=== PATIENT | female | born 1950 | race Caucasian/White ===

== ENCOUNTER 2020-12-03 13:45 | Outpatient (CLI) | payer MEDICARE, SELFPAY ==
[2020-12-03 14:02] VITALS: BP 133/78; PULSE 86; RESP 18; TEMP 37.7; O2SAT 94; BMI 35.9
[2020-12-03] MEDS: 0.9% Saline Lock 10 ML Syringe IV (14:07)
[2020-12-03 14:45] VITALS: BP 116/70; PULSE 85; RESP 16; TEMP 38.4; O2SAT 97
[2020-12-03] MEDS: Acetaminophen 325 MG Tablet 650 MG PO (15:02)
[2020-12-03 16:08] VITALS: BP 119/75; PULSE 83; RESP 16; TEMP 38.2; O2SAT 98
== END 2020-12-03 16:09 | disposition home or self-care (01) ==
LOC: MS3OUT 13:46 → MS3 13:46
PROVIDERS: Referring Provider Nurse Practitioner Adult Health; Visit Provider Nurse Practitioner Adult Health
DX: Z23 Encounter for immunization (principal); U07.1 COVID-19
CPT/HCPCS: J7050; M0243; A4216; Q0240

== ENCOUNTER 2022-03-15 16:42 | Emergency (ER) | payer MEDICARE, SELFPAY ==
[2022-03-15 16:44] VITALS: BP 145/87; PULSE 75; RESP 18; TEMP 36.1; O2SAT 96; BMI 35.7
--- NOTE | 2022-03-15 17:55 | CT_ITS ---
INDICATION: LLQ pain EXAMINATION: CT Abdomen And Pelvis W/ Contrast Injection TECHNIQUE: Helically acquired images were obtained of the abdomen and pelvis after IV contrast. A radiation dose optimization technique was used for this scan. IV Contrast dosage and agent: IV 100mL Isovue-300 Oral contrast: None. COMPARISON: None. FINDINGS: Visualized lung bases: Left diaphragmatic hernia containing the stomach and pancreas.. Liver: Unremarkable Gallbladder: Unremarkable Spleen: Unremarkable Pancreas: Unremarkable Adrenal Glands: Unremarkable Kidneys: Unremarkable Vasculature: Mild scattered aortoiliac atherosclerotic calcifications. GI Tract: Scattered diverticula throughout the colon. There is mild circumferential short segment wall thickening of the sigmoid colon with surrounding mesenteric fat stranding. No focal fluid collection or free air. Lymphadenopathy: None Peritoneum: No ascites. Bladder: Unremarkable Reproductive organs: Unremarkable Bones/Soft tissues: There are diffuse degenerative changes of the spine. CT/Abdomen/Pelvis W IV Cont ONLY IMPRESSION: Acute sigmoid diverticulitis. No focal fluid collection or free air. Left diaphragmatic hernia containing the stomach and pancreas.. Electronically Signed: Bartolo Perez MD at 19:14 EST ,
--- NOTE | 2022-03-15 17:56 | EDS_ITS ---
HPI HPI - GI History of Present Illness Chief Complaint: Abd Pain Narrative Narrative: 71-year-old female past medical history of hypothyroidism, hypertension, hypercholesterolemia, remote diverticulitis presents with suprapubic to left lower quadrant abdominal pain that she has had for the last 3 to 4 weeks. She is taking a probiotic. Still has bowel movements and is going more frequently. She denies any fevers or chills. No nausea or vomiting. No diarrhea. She states at times she feels like she has to have a bowel movement and she has similar pain in the suprapubic area to the left lower quadrant. She thinks she may have diverticulitis again. She denies any dysuria or hematuria. No true exacerbating or alleviating symptoms. She is able to sleep at night she states. [facility] Medical History (Updated 03/15/22 @ 19:49 by Gus Menjivar MD) Breast cancer Hypertension Home Medications atorvastatin 40 mg tablet 40 mg PO DAILY 12/03/20 [History Last Taken Unknown] citalopram 10 mg tablet 10 mg PO DAILY 12/03/20 [History Last Taken Unknown] levothyroxine 100 mcg tablet 100 mcg PO DAILY 12/03/20 [History Last Taken Unknown] lisinopril 10 mg tablet 10 mg PO DAILY 12/03/20 [History Last Taken Unknown] omeprazole 40 mg capsule,delayed release 40 mg PO DAILY 12/03/20 [History Last Taken Unknown] vitamin E 400 unit tablet 400 unit PO DAILY 12/03/20 [History Last Taken Unknown] ciprofloxacin HCl 500 mg tablet (Cipro) 500 mg PO BID #20 tabs 03/15/22 [Rx Last Taken Unknown] metronidazole 500 mg tablet 500 mg PO TID #30 tabs 03/15/22 [Rx Last Taken Unknown] Allergy/AdvReac Type Severity Reaction Status Date / Time latex Allergy Other Verified 03/15/22 16:43 Social History Smoking Status: Never smoker ROS ROS ED ROS Narrative Constitutional: No fever, no chills. HEENT: No sore throat. No neck pain. No loss of vision. No rhinorrhea. Cardiovascular: No chest pain. No palpitations. No pedal edema. Respiratory: No cough, no shortness of breath. Abdominal: Suprapubic to left lower quadrant abdominal pain. No nausea. No vomiting. Genitourinary: No dysuria. No hematuria. Musculoskeletal: No myalgias. No arthralgias. Neurologic: No headaches. No dizziness. No lightheadedness. Skin: No rash. No change in color. Psychiatric: No depression. No anxiety. EXAM Physical Exam Narrative Exam Narrative: Afebrile. Vital signs noted. HEENT: Normocephalic. Atraumatic. PERRL, EOMI. Neck soft and supple. No point tenderness or step off. Cardiovascular: Regular rate and rhythm. No murmurs, rubs, or gallops appreciated. Respiratory: No tachypnea. Lungs clear to auscultation bilaterally. Gastrointestinal: Abdomen soft, mild tenderness to palpation in suprapubic to left lower quadrant with normoactive bowel sounds. No rebound or guarding. Neurological: Awake. Alert. Nonfocal, nonlateralizing. Skin: No rash. Normal color. No pallor. Musculoskeletal: No pedal edema. Full range of motion extremities. Const Vital Signs: 03/15/22 16:44 Temperature 97 F L Temperature Source Temporal Pulse Rate 75 Respiratory Rate 18 Blood Pressure 145/87 H Blood Pressure Mean 106 Pulse Ox 96 Oxygen Delivery Method Room Air MDM MDM MDM Narrative Medical decision making narrative: In the differential diagnosis is sigmoid diverticulitis versus colitis versus obstruction versus urinary tract infection or ureterolithiasis. Comprehensive work-up was pursued. CBC, CMP, and urinalysis will be obtained. Currently, she declines any analgesics parenterally. She will be bolused normal saline and CT imaging will be obtained as well. I reviewed the patient's laboratory work. She has normal white count of 6.1, hemoglobin normal at 12.4, platelet count normal at 169. CMP shows chloride 110 but sodium normal at 143 with a normal potassium of 4.2. BUN and creatinine are normal at 17 and 0.99. Urinalysis shows 100 leukocytes, but negative nitrites. While she has 5-10 WBCs, she is not having dysuria or hematuria. Of most significance is review of the radiology report which shows sigmoid diverticulitis. She will be on antibiotics regardless although I do not feel that she has a urinary tract infection. I do feel that this is an uncomplicated diverticulitis. I do feel that she can be treated as an outpatient. She states she has an appointment with Dr. Magaña on on the first, approximately 8 days from now. She was told that she should probably follow-up in a few days. Return precautions were reviewed with the patient. She was given her first doses of Cipro and Flagyl here in the emergency department but declined a prescription for narcotic pain medication, stating she would rather take [id number] medication. I feel she be discharged safely home with follow-up. Return instructions were reviewed. She was also given the number to gastroenterology with whom she could follow-up. Disposition is discharged home in stable condition. Lab Data Attestation: I reviewed the patient's lab results. Labs: Laboratory Results - last 24 hr 03/15/22 03/15/22 03/15/22 18:02 18:02 18:10 WBC 6.1 RBC 4.06 L Hgb 12.4 Hct 37.9 MCV 93.3 MCH 30.5 MCHC 32.7 RDW Std Deviation 45.4 H RDW Coeff of Herminio 13.2 Plt Count 169 MPV 13.0 H Immature Gran % (Auto) 0.200 Neut % (Auto) 62.6 Lymph % (Auto) 21.9 [place]nam % (Auto) 12.5 H Eos % (Auto) 2.1 Baso % (Auto) 0.7 Absolute Neuts (auto) 3.8 Absolute Lymphs (auto) 1.33 Nucleated RBC % 0 Sodium 143 Potassium 4.2 Chloride 110 H Carbon Dioxide 27.0 Anion Gap 6 BUN 17 Creatinine 0.99 Estim Creat Clear Calc 48.26 Est GFR (MDRD) Af Amer 72 Est GFR (MDRD) Non-Af 59 L BUN/Creatinine Ratio 17.2 Glucose 100 Calcium 8.8 Total Bilirubin 0.30 AST 23 ALT 23 Alkaline Phosphatase 93 Total Protein 6.7 Albumin 3.3 Globulin 3.4 Albumin/Globulin Ratio 1.0 Urine Color Yellow Urine Clarity Clear Urine pH 6.0 Ur Specific [place] 1.015 Urine Protein 15 H Urine Glucose (UA) Normal Urine Ketones Negative Urine Occult Blood 10 H Urine Nitrite Negative Urine Bilirubin Negative Urine Urobilinogen Normal Ur Leukocyte Esterase 100 H Urine RBC 0 SEEN Urine WBC 5-10 SEEN Ur Squamous Epith Cells 0 SEEN Urine Bacteria RARE Urine Mucus 0 SEEN Radiography Diagnostic Testing: Clinical Impression(s) from Imaging Studies Abdomen/Pelvis CT 03/15/22 17:55 IMPRESSION: Acute sigmoid diverticulitis. No focal fluid collection or free air. Left diaphragmatic hernia containing the stomach and pancreas.. Electronically Signed: Bartolo Perez MD at 19:14 EST , Discharge Plan Triage Chief Complaint: Abd Pain Other Complaint: Diarrhea ED Provider: Gus Menjivar Dx/Rx/DC Orders Clinical Impression: Sigmoid diverticulitis, Abdominal pain Instructions: ED Diverticulitis Prescriptions: New ciprofloxacin HCl [Cipro] 500 mg tablet 500 mg PO BID Qty: 20 0RF metronidazole 500 mg tablet 500 mg PO TID Qty: 30 0RF No Action atorvastatin 40 mg Tablet 40 mg PO DAILY citalopram 10 mg Tablet 10 mg PO DAILY omeprazole 40 mg Capsule,Delayed Release(Dr/Ec) 40 mg PO DAILY levothyroxine 100 mcg Tablet 100 mcg PO DAILY lisinopril 10 mg Tablet 10 mg PO DAILY vitamin E 400 unit Tablet 400 unit PO DAILY Primary Care Provider: Gina Lynch Referrals: Vignesh Medina MD [Non-Staff] - Gina Lynch DO [Med Staff - Time Signal Wirer] - 3-5 Days Randy Wolf DO [Med Staff - Active Staff] - As Needed Activity Restrictions/Additional Instructions: You have been diagnosed with diverticulitis. Take all of your medication. Follow-up with your primary care physician in the next 3 to 5 days. Return with fever, increased pain, new or worsening symptoms. Disposition Disposition: Home, Self Care
[2022-03-15 18:23] LABS: Absolute Lymphocyte Count 1.33 X10^3/uL (0.83-4.51); Absolute Neutrophil Count 3.8 X10^3/uL (2.0-7.7); Basophil# 0.04 X10^3/uL; Basophil% 0.7 % (0-1); Eosinophil# 0.13 X10^3/uL; Eosinophils% 2.1 % (0-5); Hematocrit 37.9 % (37-47); Hemoglobin 12.4 g/dL (12.0-15.0); Lymphocyte # 1.33 X10^3/ul (0.83-4.51); Lymphocyte % 21.9 % (19-41); Mean Corp Hgb Conc 32.7 g/dL (32-36); Mean Corpuscular Hgb 30.5 pg (27.0-32.0); Mean Corpuscular Volume 93.3 fL (81-99); Monocyte# 0.76 X10^3/uL; Monocyte% 12.5 % (0-10); NRBC Flagged by Analyzer 0 % (0-5); Neutrophil % 62.6 % (47-70); Platelet Count 169 K/mm3 (150-450); RBC Distribution Width CV 13.2 % (11.6-14.6); RBC Distribution Width SD 45.4 fl (35.1-43.9); Red Blood Count 4.06 M/mm3 (4.2-5.4); White Blood Count 6.1 K/mm3 (4.4-11.0)
[2022-03-15 18:28] LABS: Mucous, Urine 0 SEEN /hpf (<or=2+); Red Blood Cells-Urine 0 SEEN /hpf (0-5); Squamous Epithelial Cells - UA 0 SEEN /hpf (5-10)
[2022-03-15 18:32] LABS: AST(SGOT) 23 U/L (15-37); Alanine Aminotransfer ALT/SGPT 23 U/L (13-56); Albumin, Serum 3.3 g/dL (3.2-5.0); Alkaline Phosphatase 93 U/L (45-117); Anion Gap 6 (5-15); BUN 17 mg/dL (7-18); BUN/Creat Ratio 17.2 RATIO (10-20); Calcium,Total 8.8 mg/dL (8.5-10.1); Chloride 110 mmol/L (98-107); Creatinine, Serum 0.99 mg/dL (0.55-1.02); EST Glomerular Filtration Rate 59 mL/min (>60); Est Glom Filt Rate - Afr Amer 72 mL/min (>60); Estimated Creatinine Clearance 48.26 ml/min; Globulin 3.4 g/dL (2.2-4.2); Glucose 100 mg/dL (74-106); Potassium 4.2 mmol/L (3.5-5.1); Protein, Total 6.7 g/dL (6.4-8.2); Sodium Level 143 mmol/L (136-145)
[2022-03-15 18:37] LABS: Color, Urine Yellow (Yellow); Glucose, Dipstick Normal (Normal); Ketone-Dipstick Negative (Negative); Leukocyte Esterase-Dipstick 100 /ul (Negative); Nitrite-Dipstick Negative (Negative); Occult Blood-Urine 10 /ul (Negative); Protein-Dipstick 15 mg/dl (Negative); Specific Gravity, Urine 1.015 (1.002-1.030); Urine Bilirubin Dipstick Negative (Negative); Urine Clarity Clear (Clear); Urine Urobilinogen Normal (Normal)
[2022-03-15 18:43] VITALS: PULSE 74
[2022-03-15 18:45] LABS: Bacteria RARE /hpf (None Seen); White Blood Cells 5-10 SEEN /hpf (0-5)
[2022-03-15 19:44] VITALS: PULSE 77; RESP 15; O2SAT 99
[2022-03-15] MEDS: Ciprofloxacin 500 MG Tablet PO (19:55)
[2022-03-15] MEDS: metroNIDAZOLE 500 MG Tablet PO (19:55)
== END 2022-03-15 19:58 | disposition home or self-care (01) ==
PROVIDERS: Emergency Provider Emergency Medicine; PCP Internal Medicine; Visit Provider Emergency Medicine
DX: K57.32 Diverticulitis of large intestine without perforation or abscess without bleeding (principal); I10 Essential (primary) hypertension; E78.00 Pure hypercholesterolemia, unspecified; R10.9 Unspecified abdominal pain; E03.9 Hypothyroidism, unspecified; Z85.3 Personal history of malignant neoplasm of breast
CPT/HCPCS: 74177; 80053; 81001; 85025; 99284; Q9967; A4216

== ENCOUNTER → 2022-04-02 | Outpatient (CLI) | payer MEDICARE, SELFPAY ==
[2022-04-02 12:52] LABS: Absolute Lymphocyte Count 1.01 X10^3/uL (0.83-4.51); Absolute Neutrophil Count 2.9 X10^3/uL (2.0-7.7); Basophil# 0.03 X10^3/uL; Basophil% 0.6 % (0-1); Eosinophil# 0.13 X10^3/uL; Eosinophils% 2.8 % (0-5); Hematocrit 38.8 % (37-47); Hemoglobin 12.8 g/dL (12.0-15.0); Lymphocyte # 1.01 X10^3/ul (0.83-4.51); Lymphocyte % 21.7 % (19-41); Mean Corpuscular Hgb 30.7 pg (27.0-32.0); Mean Platelet Vol. 13.1 fl (6.2-12.0); Monocyte# 0.57 X10^3/uL; Monocyte% 12.3 % (0-10); NRBC Flagged by Analyzer 0 % (0-5); Neutrophil % 62.4 % (47-70); Platelet Count 158 K/mm3 (150-450); RBC Distribution Width CV 14.4 % (11.6-14.6); RBC Distribution Width SD 48.8 fl (35.1-43.9); Red Blood Count 4.17 M/mm3 (4.2-5.4); White Blood Count 4.7 K/mm3 (4.4-11.0)
[2022-04-02 12:54] LABS: Erythrocyte Sedimentation Rate 21 mm/hr (0-30)
[2022-04-02 13:39] LABS: CRP < 2.90 mg/L (0.0-3.0)
== END | disposition home or self-care (01) ==
LOC: LABSPEC 12:35
PROVIDERS: PCP Internal Medicine; Visit Provider Internal Medicine
DX: R10.9 Unspecified abdominal pain (principal)
CPT/HCPCS: 85025; 85652; 86140

== ENCOUNTER → 2022-08-09 | Outpatient (CLI) | payer MEDICARE, SELFPAY ==
--- NOTE | 2022-08-09 12:50 | ECHOD_ITS ---
Reason For Study: ARRYTHMIA Procedure This was a 2D Doppler, Color Flow transthoracic echocardiogram. Technically difficult study. Exam performed in department. Left Ventricle Normal size and thickness. The left ventricular ejection fraction is 65 %. Normal diastology for age. Right Ventricle Normal right ventricle. Atria The left and right atria are normal. Mitral Valve Mild mitral annular calcification. Trivial mitral valve insufficiency. Tricuspid Valve Trivial tricuspid valve insufficiency. Unable to estimate RV systolic pressure due to insufficient tricuspid regurgitant envelope. Aortic Valve Focal thickening of the left aortic valve cusp. The aortic valve is not well visualized in the short axis view. Pulmonic Valve The pulmonic valve is not well visualized. Great Vessels Normal sized aortic root. Pericardium/Pleural No pericardial effusion. MMode/2D Measurements & Calculations LVIDd: 4.1 cm IVSd: 1.1 cm Ao root diam: 3.4 cm LVIDs: 2.4 cm LVPWd: 1.2 cm FS: 41.8 % LAV(MOD-sp4): 57.1 ml LA A4 area: 21.1 cm2 LA dimension(2D): 3.0 cm RA A4 area: 13.2 cm2 Time Measurements MV dec time: 0.24 sec Doppler Measurements & Calculations MV E max santos: 69.9 cm/sec Lat Peak E' Santos: 8.6 cm/sec Med Peak E' Santos: 7.3 cm/sec MV A max santos: 73.1 cm/sec E/E' lat: 8.1 E/E' med: 9.5 MV E/A: 0.96 MV V2 max: 89.5 cm/sec MV dec slope: 288.0 cm/sec2 Ao V2 max: 160.4 cm/sec MV max P.2 mmHg Ao max P.3 mmHg MV V2 mean: 55.6 cm/sec Ao V2 mean: 107.7 cm/sec MV mean P.4 mmHg Ao mean P.3 mmHg MV V2 VTI: 35.0 cm Ao V2 VTI: 37.0 cm AV (velocity ratio): 0.84 LV V1 max: 114.0 cm/sec PA V2 max: 86.2 cm/sec LV V1 max P.2 mmHg PA V2 mean: 61.3 cm/sec LV V1 mean P.8 mmHg LV V1 mean: 78.4 cm/sec LV V1 VTI: 31.2 cm ECHO/Echo Complete Interpretation Summary Technically difficult study. The left ventricular ejection fraction is 65 %. Mild mitral annular calcification. Focal thickening of the left aortic valve cusp. Ordering Physician: Gina Lynch Referring Physician: Gina Lynch Performed By: Mary Harper RCS
== END | disposition home or self-care (01) ==
PROVIDERS: PCP Internal Medicine; Referring Provider Internal Medicine; Visit Provider Internal Medicine
DX: I49.8 Other specified cardiac arrhythmias (principal); R94.31 Abnormal electrocardiogram [ECG] [EKG]
CPT/HCPCS: 93306

== ENCOUNTER → 2023-02-22 | Outpatient (CLI) | payer MEDICARE, SELFPAY ==
--- NOTE | 2023-02-22 13:11 | BD_ITS ---
STUDY: DUAL ENERGY X-RAY ABSORPTIOMETRY / DXA REASON FOR EXAM: Female, 72 years old. [id number] TECHNIQUE: Bone Mineral Density (BMD) measurements of lumbar spine and bilateral hips were obtained. COMPARISON: None. FINDINGS: Lumbar Spine (L1-L4): g/cm2 (0.918) / T-score (-1.1) / Z-score (1.0) Findings are suggestive of osteopenia with a low fracture risk. Left Femur Total: g/cm2 (0.997) / T-score (0.5) / Z-score (2.0) Left Femoral Neck: g/cm2 (0.714) / T-score (-1.2) / Z-score (0.6) Right Femur Total: g/cm2 (1.076) / T-score (1.1) / Z-score (2.6) Right Femoral Neck: g/cm2 (0.848) / T-score (0.0) / Z-score (1.8) BD/Dexa Bone Density Study IMPRESSION: The patient is considered osteopenic as outlined below according to World Royal Organization (WHO) criteria with a low fracture risk. Reference Information: The T-score is the number of standard deviations above or below the standard which is normal for young adults at their peak bone mineral density. The World Health Organization (WHO) interprets the T-scores as follows: Above -1 Normal bone density Between -1 and -2.5 Osteopenia Equal to / or below -2.5 Osteoporosis As a practical clinical guideline, osteopenia may be graded as follows: Mild -1 through -1.5 Moderate -1.6 through -2.0 Severe -2.1 through -2.4 The Z-score is the number of standard deviations above or below age-matched controls. A Z-score of less than -1.5 would be considered abnormal. References: 1. NIH Osteoporosis and Related Bone Diseases www osteo.org 2. International Society for Clinical Densitometry www iscd.org 3. National Osteoporosis Foundation www nof.org Electronically Signed: Jc Vasquez MD at 14:37 EST ,
== END | disposition home or self-care (01) ==
PROVIDERS: PCP Internal Medicine; Referring Provider Internal Medicine; Visit Provider Internal Medicine
DX: Z78.0 Asymptomatic menopausal state (principal)
CPT/HCPCS: 77080

== ENCOUNTER 2024-11-29 23:22 | Emergency (ER) | payer MEDICARE, SELFPAY ==
[2024-11-29 23:23] VITALS: BP 138/80; PULSE 62; RESP 18; TEMP 37; O2SAT 99
--- NOTE | 2024-11-29 23:40 | RAD_ITS ---
PROCEDURE: KNEE 4 OR MORE VIEWS 11/29/2024 REASON FOR EXAM: PAIN TECHNIQUE: Procedure Code: RADKN Modality: DX Procedure: KNEE 4 OR MORE VIEWS Laterality: Right. FINDINGS: No acute fracture or dislocation. Moderate joint space narrowing with marginal osteophytosis. Small suprapatellar joint effusion. RAD/Knee 4 or More Views IMPRESSION: As above. Reading Location: [id number]
[2024-11-30 01:32] VITALS: BP 136/63; PULSE 74
--- NOTE | 2024-11-30 01:48 | EDS_ITS ---
HPI History of Present Illness Chief Complaint: Lower Extremity Injury Informant: patient Narrative Narrative: Patient is a 74-year-old female with past medical history of hypertension. She states that she has had increased pain and swelling to the right knee with no trauma. She denies any history of DVT/PE. She denies any recent surgery or travel. She states that she recently had sudden onset redness and swelling and pain in her right great toe and she was unsure if this could be gout or not. She states she is taking [id number] medications with minimal symptom improvement and secondary to the persistent pain presents for evaluation [facility] Medical History (Updated 12/02/24 @ 01:[address] Reinaldo Contreras, DO) Hypertension Breast cancer Home Medications ?Medication ?Instructions ?Recorded ?Last Taken ?Type atorvastatin 40 mg tablet 40 mg PO DAILY 12/03/20 Unkn own History citalopram 10 mg tablet 10 mg PO DAILY 12/03/20 Unkn own History levothyroxine 100 mcg tablet 100 mcg PO DAILY 12/03/20 Unknown History lisinopril 10 mg tablet 10 mg PO DAILY 12/03/20 Unkn own History omeprazole 40 mg capsule,delayed 40 mg PO DAILY Unknown History release vitamin E 400 unit tablet 400 unit PO DAILY 12/03/20 U nknown History ciprofloxacin HCl 500 mg tablet 500 mg PO BID #20 tabs 03/15/22 Unknown Rx (Cipro) metronidazole 500 mg tablet 500 mg PO TID #30 tabs Unknown Rx oxycodone-acetaminophen 5 mg-325 1 tab PO Q6H PRN pain 3 days #12 11/30/24 Unknown Rx mg tablet (Endocet) tabs Allergy/AdvReac Type Severity Reaction Status Date / Time latex Allergy Other Verified 11/29/24 23:24 Family History no significant family his Social History Smoking Status: Never smoker ROS ROS ED Constitutional Constitutional ED: Denies chills or fever(s) ENT ENT ED: Denies sore throat Cardiovascular Cardiovascular: Denies chest pain, palpitations or racing heartbeat Respiratory/Chest Respiratory/Chest: Denies cough or dyspnea Gastrointestinal Gastrointestinal: Denies abdominal pain, diarrhea, nausea or vomiting Musculoskeletal Musculoskeletal: Reports other Details: Positive right knee pain Integumentary Denies Abrasions or rash Neurologic Neurologic: Denies headache(s), paresthesias or weakness Hematologic/Lymphatic Hematologic/Lymphatic: Denies easy bleeding or easy bruising EXAM Physical Exam Const Vital Signs: 11/29/24 23:23 11/30/24 01:32 Temperature 98.6 F Temperature Source Oral Pulse Rate 62 74 Respiratory Rate 18 Blood Pressure 138/80 H 136/63 H Blood Pressure Mean 99 87 Pulse Ox 99 Oxygen Delivery Method Room Air Positive well nourished and well developed General Appearance ED: well developed; Negative for pallor HEENT HEENT Narrative: Normocephalic atraumatic Eyes PERRL and EOMs intact bilaterally General Eye ED: Negative for scleral icterus Neck supple Resp normal respiratory effort and clear to auscultation bilaterally Cardio regular rate and regular rhythm Extremity Extremity Narrative: Right lower extremity is neurovascularly intact. Patient has mild soft tissue swelling to the anterior aspect of the right knee that is asymmetric when compared to left. However there is no overlying erythema or warmth. No obvious findings to suggest cellulitis or abscess. There is no asymmetric swelling of the right calf compared to left. Negative Homans' sign bilaterally. All compartments are soft and compressible going against compartment syndrome. Patellar tendon is intact and the ligaments are stable. Active range of motion of the right knee is decreased secondary to pain Neuro oriented x3, CN's II-XII intact bilaterally and no sensory deficits noted Sensorium / Orientation: alert Psych mental status grossly normal Skin no rashes or lesions noted and no wounds Skin Narrative: Soft tissue swelling to the anterior aspect of the right knee as documented above without overlying erythema or warmth or ecchymosis General Skin Exam: Negative for jaundice or pallor MDM MDM MDM Narrative Medical decision making narrative: Patient arrived to the ER with mild hypertension but has a past medical history of this. She reported right knee pain without trauma or excessive activity. She denied any recent travel or surgery and her physical exam does not suggest DVT as there is no asymmetric calf swelling or pain but pain and swelling is along the anterior aspect of the knee. The patient has had no recent injections or knee surgeries. She denies any sick symptoms or fevers. By physical exam she does not have a septic joint as there is no erythema or warmth and she is able to still bear weight and ambulate. There is no overlying cellulitis or abscess by physical exam either. There is a potential for gout as patient reported changes to the right great toe recently that correlate more with gout but without erythema or warmth I have low concern for this. X-ray confirmed that there was no free air going against a soft tissue gangrenous infection and there is no sign of moth-eaten appearance to suggest osteomyelitis or occult fracture. I cannot perform a venous duplex at this time of night and in order to ensure that her nontraumatic pain is not from a DVT an outpatient venous duplex will be provided. At this time the patient will be placed in the immobilizer for stabilization given pain control. 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 Reading Location: [facility] X-ray of the right knee reveals soft tissue swelling/small joint effusion above the patella with degenerative findings but no acute fracture dislocation or retained foreign body Discharge Plan Triage Chief Complaint: Lower Extremity Injury ED Provider: Reinaldo Contreras Dx/Rx/DC Orders Clinical Impression: Right knee sprain, Hypertension Instructions: ED Meniscal Injury Knee Poss, ED Knee Sprain Prescriptions: New oxycodone-acetaminophen [Endocet] 5-325 mg tablet 1 tab PO Q6H PRN (Reason: pain) 3 Days Qty: 12 0RF No Action atorvastatin 40 mg Tablet 40 mg PO DAILY citalopram 10 mg Tablet 10 mg PO DAILY omeprazole 40 mg Capsule,Delayed Release(Dr/Ec) 40 mg PO DAILY levothyroxine 100 mcg Tablet 100 mcg PO DAILY lisinopril 10 mg Tablet 10 mg PO DAILY vitamin E 400 unit Tablet 400 unit PO DAILY ciprofloxacin HCl [Cipro] 500 mg tablet 500 mg PO BID Qty: 20 0RF metronidazole 500 mg tablet 500 mg PO TID Qty: 30 0RF Primary Care Provider: Gina Lynch Referrals: Gina Lynch DO [Primary Care Provider, Internal Medicine] Activity Restrictions/Additional Instructions: Your x-ray showed arthritis and a small effusion but no sign of fracture or disl ocation. By physical exam he had potential injury to your meniscus or your lateral collateral ligament and this will need an MRI for further evaluation. Please follow-up with your family doctor and discuss obtaining this study as an outpatient. In order to ensure there is no sign of atypical presentation for a DVT obtain your outpatient venous duplex. If you develop redness warmth or fever this could indicate potential infection and therefore please return to the ER for repeat evaluation. Print Language: Mohawk Disposition Disposition: Home, Self Care Discharge Date/Time: 11/30/24 02:28
[2024-11-30 02:26] VITALS: BP 136/63; PULSE 74; RESP 18; TEMP 36.6; O2SAT 100
== END 2024-11-30 02:28 | disposition home or self-care (01) ==
PROVIDERS: Emergency Provider Emergency Medicine; PCP Internal Medicine; Visit Provider Emergency Medicine
DX: S83.91XA Sprain of unspecified site of right knee, initial encounter (principal); I10 Essential (primary) hypertension; Z85.3 Personal history of malignant neoplasm of breast; X58.XXXA Exposure to other specified factors, initial encounter
CPT/HCPCS: 73564; 99283

== ENCOUNTER → 2024-11-30 | Outpatient (CLI) | payer MEDICARE, SELFPAY ==
--- NOTE | 2024-11-30 14:07 | VDLE_ITS ---
Reason For Study Reason For Study: Pain RIGHT LEFT GSV is normal. CFV is compressible, spontaneous, phasic, competent, CFV is compressible, spontaneous, phasic, competent and demonstrates normal augmentation. and demonstrates normal augmentation. FV is compressible, spontaneous, phasic, competent and demonstrates normal augmentation. POP V is compressible, spontaneous, phasic, competent and demonstrates normal augmentation. T/P Trunk is compressible. PTV is compressible. RT PerV is compressible. Nonvascularized structure noted in the popliteal fossa measuring 3.15x0.75x4.85 cm. Procedure This is a venous duplex using B-mode, color flow and spectral Doppler. Exam performed in department. A preliminary report was called and/or faxed to Gina Lynch DO. VL/Venous Duplex US, Unilateral Interpretation Summary Deep veins of the right lower extremity are patent and compressible segmentally . There is no evidence of right lower extremity deep vein thrombosis. The right great saphenous vein appears patent a nd compressible segmentally. Nonvascularized structure noted in the popliteal fossa measuring 3.15x0.75x4.85 cm. Ordering Physician: Reinaldo Contreras Referring Physician: Gina Lynch M.D. Performed By: Lien Caban RVT
== END | disposition home or self-care (01) ==
PROVIDERS: PCP Internal Medicine; Referring Provider Emergency Medicine; Visit Provider Emergency Medicine
DX: R60.9 Edema, unspecified (principal); M79.604 Pain in right leg
CPT/HCPCS: 93971

== ENCOUNTER → 2025-01-16 | Outpatient (CLI) | payer MEDICARE, SELFPAY ==
[2025-01-16 17:53] LABS: Hematocrit 39.0 % (37-47); Hemoglobin 12.7 g/dL (12.0-15.0); Immature Granulocytes Count 0.010 X10^3/uL (0.0-0.0); Mean Corp Hgb Conc 32.6 g/dL (32-36); Mean Corpuscular Volume 91.5 fL (81-99); Mean Platelet Vol. 13.1 fl (6.2-12.0); NRBC Flagged by Analyzer 0 % (0-5); Platelet Count 159 K/mm3 (150-450); RBC Distribution Width CV 13.8 % (11.6-14.6); RBC Distribution Width SD 46.8 fl (35.1-43.9); Red Blood Count 4.26 M/mm3 (4.2-5.4); White Blood Count 6.5 K/mm3 (4.4-11.0)
[2025-01-16 18:15] LABS: AST(SGOT) 21 U/L (<=31); Alanine Aminotransfer ALT/SGPT 13 U/L (<=34); Albumin, Serum 4.0 g/dL (3.4-4.8); Alkaline Phosphatase 88 U/L (35-104); Anion Gap 11 (5-15); BUN 20 mg/dL (4-19); BUN/Creat Ratio 20.5 RATIO (10-20); CRP < 3.00 mg/L (0.0-3.0); Calcium,Total 9.5 mg/dL (7.6-11.0); Carbon Dioxide 25.1 mmol/L (21.0-32.0); Chloride 103 mmol/L (98-108); Free T3 3.1 pg/mL (2.18-3.98); Globulin 2.8 g/dL (2.2-4.2); Glucose 112 mg/dL (70-99); Potassium 3.7 mmol/L (3.3-5.1); Uric Acid 7.8 mg/dL (2.6-6.0)
== END | disposition home or self-care (01) ==
LOC: CIMLAB 14:44
PROVIDERS: PCP Internal Medicine; Referring Provider Internal Medicine; Visit Provider Internal Medicine
DX: E03.9 Hypothyroidism, unspecified (principal); E11.9 Type 2 diabetes mellitus without complications; M79.674 Pain in right toe(s); M25.561 Pain in right knee; I10 Essential (primary) hypertension
CPT/HCPCS: 36415; 80053; 83036; 84439; 84443; 84481; 84550; 85025; 86140